=== PATIENT | male | born 1980 | race Caucasian/White ===

== ENCOUNTER 2017-12-03 22:03 | Emergency (ER) | payer OTHER ==
[2017-12-04 01:21] LABS: ABSOLUTE BASOPHILS # (AUTO) 0.1 10^3/uL (0.0-0.2); ABSOLUTE EOSINOPHILS # (AUTO) 0.3 10^3/uL (0.0-0.6); ABSOLUTE LYMPHOCYTES (AUTO) 1.7 10^3/uL (0.5-4.7); ABSOLUTE MONOCYTES (AUTO) 1.5 10^3/uL (0.1-1.4); BASOPHILS % (AUTO) 0.7 % (0-2); EOSINOPHILS % (AUTO) 2.9 % (0-6); HEMOGLOBIN 13.1 g/dL (13.5-17.0); LYMPHOCYTES % (AUTO) 17.9 % (13-45); MEAN CORPUSCULAR HEMOGLOBIN 30.6 pg (27.0-33.4); MEAN CORPUSCULAR HGB CONC 34.4 g/dL (32.0-36.0); MEAN CORPUSCULAR VOLUME 89 fl (80-97); MONOCYTES % (AUTO) 15.6 % (3-13); PLATELET COUNT 269 10^3/uL (150-450); RED BLOOD COUNT 4.27 10^6/uL (4.35-5.55); RED CELL DISTRIBUTION WIDTH 13.3 % (11.5-14.0); SEGMENTED NEUTROPHILS % (AUTO) 62.9 % (42-78); TOTAL CELLS COUNTED % (AUTO) 100 %; WHITE BLOOD COUNT 9.5 10^3/uL (4.0-10.5)
[2017-12-04 01:33] LABS: ALANINE AMINOTRANSFERASE 28 U/L (21-72); ALKALINE PHOSPHATASE 64 U/L (38-126); ANION GAP 14 (5-19); ASPARTATE AMINO TRANSFERASE 18 U/L (17-59); BILIRUBIN,DIRECT 0.4 mg/dL (0.0-0.4); BILIRUBIN,TOTAL 1.1 mg/dL (0.2-1.3); BLOOD UREA NITROGEN 18 mg/dL (7-20); CALCIUM 9.1 mg/dL (8.4-10.2); CARBON DIOXIDE 28 mmol/L (22-30); CHLORIDE 96 mmol/L (98-107); GLUCOSE 97 mg/dL (75-110); POTASSIUM 3.8 mmol/L (3.6-5.0); SODIUM 137.9 mmol/L (137-145); TOTAL PROTEIN 7.1 g/dL (6.3-8.2)
[2017-12-04 02:10] LABS: APPEARANCE,URINE CLEAR; BILIRUBIN,URINE NEGATIVE (NEGATIVE); COLOR,URINE YELLOW; GLUCOSE, URINE NEGATIVE (NEGATIVE); KETONES,URINE NEGATIVE (NEGATIVE); LEUKOCYTE ESTERASE,URINE NEGATIVE (NEGATIVE); NITRITE,URINE NEGATIVE (NEGATIVE); PROTEIN,URINE NEGATIVE (NEGATIVE); URINE SPECIFIC GRAVITY 1.031; UROBILINOGEN,URINE NEGATIVE mg/dL (<2.0)
--- NOTE | 2017-12-04 03:03 | ER Document Report ---
ED General - General Chief Complaint: Abdominal Pain Stated Complaint: STOMACH PAIN,BACK PAIN,DIARRHEA Time Seen by Provider: 12/04/17 00:57 TRAVEL OUTSIDE OF THE [place] IN LAST 30 DAYS: No - HPI Patient complains to provider of: Abdominal pain and diarrhea Onset: Other - This patient has had 5 days of persistent abdominal pain and recurrent diarrhea, he notes that he has had difficulty obtaining any relief, he is going to the bathroom as frequently as 3 times every hour, is having loose watery stools during that time and his stool color is now turned green. He was seen in urgent care 2 days prior which time they said that he likely has a stomach bug and encouraged him to continue normal treatment. He denies any fevers or chills but does note that he has got persistent cramping pain which waxes and wanes. He still been able to eat and drink. Denies any chest pain shortness of breath lightheadedness or similar symptoms in the past. He has never had any surgeries in the past. - Related Data Allergies/Adverse Reactions: No Known Allergies Allergy (Verified 12/04/17 03:27) Past Medical History - General Information source: Patient - Social History Smoking Status: Never Smoker Frequency of alcohol use: None Drug Abuse: None Family History: None Patient has suicidal ideation: No Patient has homicidal ideation: No - Medical History Medical History: Negative - Past Medical History Cardiac Medical History: Reports: Hx Hypertension Renal/ Medical History: Denies: Hx Peritoneal Dialysis - Immunizations Hx Diphtheria, Pertussis, Tetanus Vaccination: Yes Review of Systems - Review of Systems -: Yes All other systems reviewed and negative Physical Exam - Vital signs Vitals: Temp Pulse BP Pulse Ox 99.2 F 83 114/86 H 97 12/03/17 22:46 12/03/17 22:46 12/03/17 22:46 12/03/17 22:46 - General General appearance: Appears well In distress: None - HEENT Head: Normocephalic Eyes: Normal Conjunctiva: Normal - Respiratory Respiratory status: No respiratory distress Chest status: Nontender Breath sounds: Normal Chest palpation: Normal - Cardiovascular Rhythm: Regular Heart sounds: Normal auscultation Murmur: No - Abdominal Inspection: Normal Distension: No distension Bowel sounds: Normal Tenderness: Tender, Other - Diffusely tender - Back Back: Normal - Extremities General upper extremity: Normal inspection General lower extremity: Normal inspection - Neurological Neuro grossly intact: Yes Cognition: Normal Orientation: AAOx4 - Psychological Associated symptoms: Normal affect Course - Re-evaluation Re-evalutation: 12/04/17 03:01 This 37-year-old male presents for evaluation of recurrent abdominal pain crampy in quality as well as diarrhea which is worst in the lower aspect of the abdomen. Does not have any health problems no surgical history he does endorse some anorexia. Was seen prior in urgent care which time he continued to have symptoms thereafter he said he is concerned and presented for further evaluation. He denies any episodes of emesis does continue to have pain. Does have his appendix does have his his gallbladder. This patient's differential is broad including things like colitis, appendicitis , gastroenteritis, infectious diarrhea or some other symptom. We will plan for laboratory evaluation administration of fluids and reassessment. We will plan for CT imaging of the abdomen and pelvis for potential appendicitis. CT imaging demonstrates what appears to be an infectious colitis, given this concern for infectious colitis will plan for this patient to undergo discharged with return precautions and treatment with Cipro Flagyl. Has been given a work note for 1 day. 12/04/17 03:57 - Vital Signs Vital signs: Temp Pulse Resp BP Pulse Ox 99.2 F 83 114/86 H 97 12/03/17 22:46 12/03/17 22:46 12/03/17 22:46 12/03/17 22:46 - Laboratory Result Diagrams: 12/04/17 00:25 12/04/17 00:25 Laboratory results interpreted by me: 12/04/17 12/04/17 00:25 00:25 RBC 4.27 L Hgb 13.1 L Monocytes % 15.6 H Absolute Monocytes 1.5 H Chloride 96 L Discharge - Discharge Clinical Impression: Colitis Diarrhea Qualifiers: Diarrhea type: infectious Qualified Code(s): A09 - Infectious gastroenteritis and colitis, unspecified Condition: Good Disposition: HOME, SELF-CARE Instructions: Colitis, Nonspecific ([facility]), Diarrhea, Nonspecific ([facility]) Prescriptions: Ciprofloxacin HCl [Cipro 500 mg Tablet] 500 mg PO BID #20 tablet Metronidazole [Flagyl 500 mg Tablet] 500 mg PO Q8H #30 tablet Forms: Return to Work
--- NOTE | 2017-12-04 03:40 | RADIOLOGY REPORT (SQ) ---
EXAM DESCRIPTION: CT ABDOMEN PELVIS WITH IV CONTRAST COMPLETED DATE/TME: 12/04/2017 01:07 CLINICAL HISTORY: Right lower abdominal pain. COMPARISON: None Available. TECHNIQUE: CT of the abdomen and pelvis performed following IV administration of 100 mL of Omnipaque 350. Delayed images obtained. DLP: 2345.62 mGycm FINDINGS: Lung Bases: The visualized lung bases are clear. Bones: No destructive bone lesions identified. Mild endplate spondylosis. Abdomen: Liver: The liver has normal size and density. No intrahepatic mass or biliary dilatation. Gallbladder: No calcified gallstones. Spleen, Pancreas, and Adrenal Glands: The spleen, pancreas, and adrenal glands are unremarkable. Kidneys: The kidneys have normal size and contour without evidence of solid mass or hydronephrosis. Vasculature: The aorta and IVC have normal caliber and position. The portal vein is patent. The proximal visceral and renal arteries are patent. Stomach: The stomach and duodenum have normal course. Other: No free intraperitoneal air. No free fluid or lymphadenopathy. Pelvis: Bladder: Urinary bladder is unremarkable. Bowel: Wall thickening of the descending and sigmoid colon without pericolic inflammatory change. No dilated loops of large or small bowel. Appendix: Normal appendix. Pelvis: Prostate is not enlarged. Fat-containing umbilical hernia. Fat-containing right inguinal hernia. IMPRESSION: 1. Findings compatible with nonspecific colitis of the descending and sigmoid colon. This could be of infectious or inflammatory etiology. 2. Normal appendix. This exam was performed according to our departmental dose-optimization program, which includes automated exposure control, adjustment of the mA and/or kV according to patient size and/or use of iterative reconstruction technique.
[2017-12-04 04:29] VITALS: BP 134/80
== END 2017-12-04 04:29 | disposition home or self-care (01) ==
LOC: ER 22:03
DX: A09 Infectious gastroenteritis and colitis, unspecified (principal); R10.9 Unspecified abdominal pain; R63.0 Anorexia; I10 Essential (primary) hypertension; R10.817 Generalized abdominal tenderness
CPT/HCPCS: 36415; 74177; 80053; 81001; 85025; 99284